=== PATIENT | male | born 1975 | race Caucasian/White ===

== ENCOUNTER → 2017-08-26 09:17 | Outpatient (CLI) | payer OTHER, SELFPAY ==
[2017-08-26 09:23] LABS: Microscopic, Urine URINE MICROSCOPIC (MICROSCOPIC)
[2017-08-26 09:59] LABS: Basophils % 0.2 % (0.1-2.0); Eosinophils # 0.1 K/mm3 (0.0-0.4); Eosinophils % 2.4 % (0.1-12.0); Hematocrit 45.5 % (42.0-52.0); Hemoglobin 15.3 g/dL (14.1-18.0); Lymphocytes # 1.3 K/mm3 (0.7-4.5); Lymphocytes % 22.2 K/mm3 (10-50); Mean Corpuscular HGB Conc 33.5 g/dL (31.8-35.4); Mean Corpuscular Hemoglobin 31.8 pg (27.0-31.2); Mean Corpuscular Volume 94.9 fl (80-94); Mean Platelet Volume 7.8 fl (7.4-10.4); Monocytes # 0.4 K/mm3 (0.1-1.0); Monocytes % 7.2 % (1.7-9.3); Neutrophils # 4.1 K/mm3 (1.8-7.8); Neutrophils % 68.1 % (37.0-80.0); Platelet Count 155 K/mm3 (142-424); Red Cell Distribution Width 12.1 % (11.5-17.5)
[2017-08-26 10:31] LABS: Appearance,Urine CLEAR (Clear); Bilirubin,Urine Negative (Negative); Blood, Urine Negative (Negative); Color,Urine YELLOW (Yellow); Glucose,Urine (UA) Negative (Negative); Ketones,Urine Negative (Negative); Leukocyte Esterase,Urine Negative (Negative); Nitrate,Urine Negative (Negative); PH,Urine 6.5 (5.0-8.5); Protein,Urine Negative (Negative); Specific Gravity, Urine 1.015 (1.005-1.030); Urobilinogen,Urine 0.2 EU/dl (0.2)
[2017-08-26 10:44] LABS: Bacteria,Urine Trace /lpf; Squamous Epithelial Cell,Urine Occasional #/hpf (0-5)
[2017-08-26 10:58] LABS: Alanine Aminotransferase 26 U/L (12-78); Albumin Level 3.5 gm/dL (3.4-5.0); Albumin/Globulin Ratio 1.3 (1.1-1.8); Alkaline Phosphatase 64 U/L (46-116); Anion Gap 7.7 mEq/L (5-15); Aspartate Amino Transferase 17 U/L (15-37); Bilirubin,Total 0.3 mg/dL (0.2-1.0); Blood Urea Nitrogen 11 mg/dL (7-18); Calcium 8.3 mg/dL (8.5-10.1); Carbon Dioxide 34 mmol/L (21.0-32.0); Chloride 107 mmol/L (98-107); Chol/HDL Ratio 2.9 (1-3.5); Cholesterol 177 mg/dL (140-200); Creatinine,Serum 0.96 mg/dL (0.70-1.30); Estimated Glomerular Filt Rate 86 ml/min (>60); GFR (African American) 104 ML/MIN (>60); Globulin 2.6 gm/dl (1.3-3.2); Glucose 89 mg/dL (74-106); HDL Cholesterol 62 mg/dL (27-67); LDL Cholesterol 104 mg/dL (0-130); Potassium 3.7 mmoL/L (3.5-5.1); Sodium 145 mmol/L (136-145); Total Protein,Serum 6.1 gm/dL (6.4-8.2); Triglycerides 54 mg/dL (30-200); VLDL Cholesterol 11 mg/dL (0-40)
== END ==
LOC: LAB 09:20
PROVIDERS: PCP Internal Medicine; Visit Provider Internal Medicine
DX: I10 Essential (primary) hypertension (principal); Z82.49 Family history of ischemic heart disease and other diseases of the circulatory system; Z83.3 Family history of diabetes mellitus
CPT/HCPCS: 36415; 80053; 80061; 81001; 85025

== ENCOUNTER → 2019-11-18 14:39 | Outpatient (CLI) | payer OTHER, SELFPAY ==
[2019-11-18 14:57] LABS: Basophils # 0.1 K/mm3 (0-0.2); Basophils % 1.1 % (0.1-2.0); Eosinophils # 0.2 K/mm3 (0.0-0.4); Eosinophils % 2.4 % (0.1-12.0); Hematocrit 48.2 % (42.0-52.0); Hemoglobin 16.6 g/dL (14.1-18.0); Lymphocytes # 1.9 K/mm3 (0.7-4.5); Lymphocytes % 20.5 % (10-50); Mean Corpuscular HGB Conc 34.4 g/dL (31.8-35.4); Mean Corpuscular Hemoglobin 31.4 pg (27.0-31.2); Mean Corpuscular Volume 91.1 fl (80-94); Mean Platelet Volume 7.6 fl (7.4-10.4); Monocytes # 0.6 K/mm3 (0.1-1.0); Monocytes % 6.9 % (1.7-9.3); Neutrophils # 6.4 K/mm3 (1.8-7.8); Neutrophils % 69.1 % (37.0-80.0); Platelet Count 226 K/mm3 (142-424); Red Blood Count 5.29 M/mm3 (4.60-6.20); Red Cell Distribution Width 12.8 % (11.5-17.5); White Blood Count 9.3 K/mm3 (4.8-10.8)
--- NOTE | 2019-11-18 15:00 | XR_ITS ---
PROCEDURE: XR ACUTE ABDOMEN SERIES CLINICAL INDICATION: LOWER ABD PAIN COMPARISON: No exams were available for comparison FINDINGS: Frontal view of the chest shows no acute finding. Upright and supine views of the abdomen demonstrates a nonspecific bowel gas pattern. There are few air-fluid levels in the right lower quadrant. No intestinal obstruction or free air is evident. No acute bony anomalies. IMPRESSION: Nonspecific bowel gas pattern with a few air-fluid levels in the right lower quadrant. Otherwise negative Dictated by: Ta Arreguin MD 11/18/2019 15:35 Electronically signed by Ta Arreguin MD in [place] 11/18/2019 15:35
== END ==
LOC: LAB 14:40
PROVIDERS: Visit Provider Internal Medicine
DX: R10.30 Lower abdominal pain, unspecified (principal)
CPT/HCPCS: 36415; 74021; 85025

== ENCOUNTER 2022-11-30 00:25 | Emergency (ER) | payer MEDICAID, SELFPAY ==
[2022-11-30 00:17] VITALS: BP 121/54; PULSE 112; RESP 19; TEMP 36.7; O2SAT 96; BMI 23.7
--- NOTE | 2022-11-30 00:26 | XR_ITS ---
PROCEDURE INFORMATION: Exam: XR Chest Exam date and time: 11/30/2022 12:29 AM Age: 47 years old Clinical indication: Screening exam; Other screening; Additional info: Overdose TECHNIQUE: Imaging protocol: Radiologic exam of the chest. Views: 1 view. Total images: 2 COMPARISON: CR XR ACUTE ABDOMEN SERIES 11/18/2019 3:02 PM FINDINGS: Tubes, catheters and devices: EKG leads are present. Lungs: Unremarkable. No consolidation. No pulmonary vascular congestion or edema. Nonspecific hyperinflation. Pleural spaces: Unremarkable. No pleural effusion. No pneumothorax. Heart/Mediastinum: Unremarkable. No cardiomegaly. No mediastinal widening or hilar enlargement. Bones/joints: Unremarkable. Soft tissues: Prominent nipple shadows. Other findings: Lordotic positioning. IMPRESSION: No radiographically acute cardiopulmonary process.
--- NOTE | 2022-11-30 00:26 | ECG_ITS ---
APPROVED REPORT Exam: Resting ECG HR:97 bpm ECG Measurements Heart Rate 97 AXES VT 187 P 81 QRSd 92 QRS 62 QT 344 T 75 QTc 398 Conclusion SINUS RHYTHM NORMAL ECG UNCONFIRMED REPORT Electronically signed by : Eric Gray MD 11/30/2022 21:16:11
--- NOTE | 2022-11-30 01:10 | [facility].EDOD ---
Discharge Plan Disposition Patient Disposition: Left Against Medical Advice Chief Complaint: Overdose Prescriptions Prescriptions: No Action methylprednisolone 4 MG tablets,dose pack 4 mg PO DIRECTED 6 Days Qty: 21 0RF Clinical Impressions Clinical Impression: Poisoning by opiate or related narcotic Instructions Patient Instructions: DI for Drug Overdose in Adults Discharge ED Provider: Lavinia (ED),Apolinar Cheng Overdose HPI General Chief Complaint: Overdose Stated Complaint: OD Time Seen by Provider: 11/30/22 01:00 Mode of Arrival: EMS Source of Information: Patient, EMS and Medical Record Limitations: No Limitations Description of Symptoms (Recalled from ER Triage Doc. by RN): 47 yo male presents to ed after alleged ingestion/inhalation/injection of opiate related product. Patient states I didn't take nothin' , however EMS and PD on scene state that patient was unresponsive with 3-5 bpm per witness statement, and somehow woke up when Narcan 5mg (4mg per PD/1mg PER ems) was administered. Denies knowledge of event. Denies situational knowledge. Denies dypsnea. Denies n/v/d currently. Denies pain anywhere. Worried about scattered rash amongst hands/arms/suprapubic area. History of Present Illness HPI Narrative: pt was found by police with dec loc and dec resp and was given narcan per state police and ems with improvement in sx - pt denied any drug use MD complaint: accidental overdose Onset (ago): hour(s) Context: Accidental Overdose: uncertain what happened Treatments Prior to Arrival: narcan Related Data Previous Rx's Medication Instructions Recorded methylprednisolone 4 mg tablets in 4 mg PO DIRECTED 6 days ##21 05/18/19 a dose pack Allergies Allergy/AdvReac Type Severity Reaction Status Date / Time No Known Allergies Allergy Verified 05/29/20 12:23 [facility] Disclaimer: The information contained in this section may have been updated after the patient was seen, as this information can be updated by other users. Social History Smoking Status: Current every day smoker tobacco type: cigarettes packs per day: 1 alcohol intake: never current occupational status: employed Travel in the last 8 weeks: None ROS Obtained: Yes All systems reviewed & no additional complaints except as documented Physical Exam General General appearance: alert Head Head exam: normocephalic Eye Eye exam: Present PERRL and EOMI ENT ENT exam: Present mucous membranes moist Neck Neck exam: Present trachea midline Respiratory Respiratory exam: Absent respiratory distress Cardiovascular Cardiovascular exam: Present regular rate Abdominal Exam Abdominal exam: Present soft Extremities Exam Extremities exam: Present full ROM Neurological Exam Neurological exam: Present alert, oriented X3 and CN II-XII intact; Absent motor sensory deficit Skin Skin exam: Absent rash Medical Decision Making Medical Records Medical records reviewed: Yes I reviewed the patient's medical records. Jesse Inquiry Pt receiving controlled substance: No Vital Signs: 11/30/22 00:17 Temperature 98.0 F Temperature Source Oral Pulse Rate [Right Brachial] 112 H Respiratory Rate 19 Blood Pressure [Right Arm] 121/54 L Blood Pressure Mean [Right Arm] 76 Blood Pressure Source [Right Arm] Automatic Cuff Blood Pressure Position [Right Arm] Sitting 02 Sat by Pulse Oximetry 96 Oxygen Delivery Method Room Air Lab Data Lab results reviewed: Yes I reviewed the patient's lab results. Orders (Tests/Meds): ORDERS Category Date Time Status XR chest portable Stat Exams 11/30/22 00:26 Taken Acetaminophen Stat Lab 11/30/22 00:26 Ordered Blood alcohol [Ethyl Alcohol] Stat Lab 11/30/22 00:26 Ordered Complete Blood Count Auto Diff Stat Lab 11/30/22 00:26 Ordered Comprehensive Metabolic Panel Stat Lab 11/30/22 00:26 Ordered Salicylate Stat Lab 11/30/22 00:26 Ordered Troponin I Q3H Lab 11/30/22 03:30 Ordered
[2022-11-30 01:15] VITALS: BP 142/76; PULSE 89; RESP 16; TEMP 36.7; O2SAT 97
== END 2022-11-30 01:18 | disposition left against medical advice (07) ==
PROVIDERS: Emergency Provider Emergency Medicine
DX: T40.2X1A Poisoning by other opioids, accidental (unintentional), initial encounter (principal); F17.210 Nicotine dependence, cigarettes, uncomplicated
CPT/HCPCS: 71045; 93005; 99284; 99285